=== PATIENT | female | born 1930 ===

== ENCOUNTER 2017-07-29 01:50 | Inpatient (IN) | payer MEDICARE, BC ==
[2017-07-29 04:08] LABS: Troponin I 0.018 ng/mL (0.000-0.034)
[2017-07-29 04:09] LABS: ALT 32 U/L (9-52); AST 26 U/L (14-36); Alkaline Phosphatase 59 U/L (38-126); Anion Gap 10 mmol/L; Blood Urea Nitrogen 28 mg/dL (7-17); Calcium 9.5 mg/dL (8.4-10.2); Carbon Dioxide 23 mmol/L (22-30); Chloride 104 mmol/L (98-107); Creatine Kinase MB 2.5 ng/mL (0.0-2.4); Glucose 136 mg/dL (74-99); Magnesium 1.3 mg/dL (1.6-2.3); Non-African American GFR(MDRD) 53 (>60 ml/min/1.73 sqM); Phosphorus 3.6 mg/dL (2.5-4.5); Potassium 4.1 mmol/L (3.5-5.1); Sodium 137 mmol/L (137-145); Total Bilirubin 0.3 mg/dL (0.2-1.3); Total Protein 6.6 g/dL (6.3-8.2)
[2017-07-29 04:15] LABS: INR 2.3 (<1.2); Partial Thromboplastin Time 38.5 sec (22.0-30.0); Prothrombin Time 22.5 sec (9.0-12.0)
[2017-07-29 04:56] LABS: Aty Lym Flag Slight; CHCM 32.8; HDW 2.65; HGB 13.5 gm/dL (11.4-16.0); MCH 29.5 pg (25.0-35.0); MCHC 32.1 g/dL (31.0-37.0); Mean Platelet Volume 7.8; RBC 4.56 m/uL (3.80-5.40); RDW 13.5 % (11.5-15.5); WBC 6.5 k/uL (3.8-10.6); WBC (Perox) 6.53
[2017-07-29 04:57] LABS: Add Differential Manual Differential
[2017-07-29 04:58] LABS: Band Neutrophils % 4 %; Manual Review Performed; Nucleated Red Blood Cells 0 /100 WBC (0-0); Total Cells Counted 100
[2017-07-29] MEDS ORDERED: DEXAMETHASONE SOD PHOSPHATE 10 MG/ML 1 ML VIAL ONE (05:00)
[2017-07-29] MEDS ORDERED: AZITHROMYCIN 500 MG in SODIUM CHLORIDE 0.9% 250 ML IVPB ONE (05:00)
[2017-07-29] MEDS ORDERED: SODIUM CHLORIDE 0.9% 500 ML BAG ONE (05:00)
[2017-07-29] MEDS ORDERED: ONDANSETRON 4 MG/2 ML VIAL ONE (05:00)
[2017-07-29] MEDS ORDERED: LORazepam 2 MG/ML INJ ONE (05:00)
[2017-07-29] MEDS ORDERED: RACEPINEPHRINE 2.25% NEB 0.5 ML NEBU INHALATION ONE (05:00)
--- NOTE | 2017-07-29 05:51 | XR ---
EXAM: XR Chest, 2 Views CLINICAL HISTORY: cough, MAGED TECHNIQUE: Frontal and lateral views of the chest. COMPARISON: No relevant prior studies available. FINDINGS: Lungs: Unremarkable. No consolidation. Pleural space: Unremarkable. No pneumothorax. Heart: Cardiomegaly. Mediastinum: Unremarkable. Bones/joints: Unremarkable. Upper abdomen: IVC filter. IMPRESSION: No acute findings. EXAM: XR Soft Tissue Neck CLINICAL HISTORY: cough, MAGED TECHNIQUE: Frontal and lateral views of the soft tissues of the neck. COMPARISON: No relevant prior studies available. FINDINGS: Airway: Unremarkable. No abnormal narrowing. Bones/joints: Mild Degenerative changes of the cervical spine mainly at C5-C6. Soft tissues: Unremarkable. No abnormal soft tissue prominence. Normal epiglottis. IMPRESSION: No acute findings.
[2017-07-29] MEDS ORDERED: NITROGLYCERIN SL TABS 0.4 MG TAB SUBLINGUAL PRN (07:11)
[2017-07-29] MEDS: METOPROLOL TARTRATE 50 MG TAB PO SCH ×2 (09:33→20:12)
--- NOTE | 2017-07-29 10:51 | P.HPIM ---
History of Present Illness H&P Date: 07/29/17 Chief Complaint: shortness of breath This 87-year-old female presented to the emergency room after a choking episode. Patient says she was sleeping, woke up short of breath. Denies any chest pains or palpitations. No history of cardiac disease in the past. She did gradually eat a regular urgent care on Thursday where she was having some sinus drainage. She was given Flonase and azithromycin. Review of Systems Constitutional: Denies chills, Denies fever, Denies sweats Ears, nose, mouth and throat: Denies headache, Denies sore throat Cardiovascular: Denies chest pain, Denies palpitations Respiratory: Reports cough Gastrointestinal: Denies abdominal pain, Denies diarrhea, Denies nausea, Denies vomiting Genitourinary: Denies dysuria, Denies hematuria Integumentary: Denies pruritus, Denies rash Neurological: Denies numbness, Denies weakness Psychiatric: Denies anxiety, Denies depression Endocrine: Denies fatigue, Denies weight change Past Medical History Past Medical History: Blood Disorder, Deep Vein Thrombosis (DVT), GERD/Reflux, GI Bleed, Hyperlipidemia, Hypertension, Osteoarthritis (OA), Pulmonary Embolus ( PE) Additional Past Medical History / Comment(s): Pt is from [place] and is here with her tracie visiting family. 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 Additional Past Anesthesia/Blood Transfusion Reaction / Comment(s): Cautious intubation due to problems in throat and paralyzed L vocal cord. Smoking Status: Never smoker - Past Family History Father Family Medical History: Deep Vein Thrombosis (DVT) Additional Family Medical History / Comment(s): Father of a blood clot that traveled to his heart. Brother(s) Family Medical History: Cancer, Pulmonary Embolus Additional Family Medical History / Comment(s): Brother had pulmonary embolism. Medications and Allergies Home Medications Medication Instructions Recorded Confirmed Type Allopurinol [Zyloprim] 100 mg PO DAILY@0800 07/29/17 07/29/17 History Ascorbic Acid [Vitamin C] 500 mg PO DAILY 07/29/17 07/29/17 History Calcium 600-Vit D3 800 1 tab PO MOWEFR 07/29/17 07/29/17 History Cyanocobalamin [Vitamin B-12] 500 mcg PO DAILY 07/29/17 07/29/17 History Fluticasone Nasal [place] [Flonase 1 - 2 spr EA NOSTRIL DAILY PRN 07/29/17 History Nasal [place]] LORazepam [Ativan] 0.5 mg PO DAILY PRN 07/29/17 07/29/17 History Lisinopril [Zestril] 20 mg PO DAILY@1500 07/29/17 07/29/17 History Lisinopril-Hctz 20-25 mg 1 tab PO TID@0800,1200,1730 07/29/17 07/29/17 History [Zestoretic 20-25] Magnesium Hydroxide [Milk of 2,400 mg PO DAILY PRN 07/29/17 07/29/17 History Magnesia] Neilmed Sinus Rinse 1 applic NASAL DAILY 07/29/17 07/29/17 History Propranolol HCl [Inderal Xl] 80 mg PO HS 07/29/17 07/29/17 History Warfarin [Coumadin] 2.5 mg PO DAILY@1700 07/29/17 07/29/17 History Allergies Allergy/AdvReac Type Severity Reaction Status Date / Time iodine Allergy Severe Unknown Verified 07/29/17 07:40 bacitracin Allergy Rash/Hives Verified 07/29/17 07:40 [From Neosporin ([id number])] Latex, Natural Rubber Allergy Unknown Verified 07/29/17 07:40 naproxen Allergy Unknown Verified 07/29/17 07:40 neomycin Allergy Rash/Hives Verified 07/29/17 07:40 [From Neosporin ([id number])] Penicillins Allergy Rash/Hives Verified 07/29/17 07:40 phenobarbital Allergy Rash/Hives Verified 07/29/17 07:40 polymyxin B Allergy Rash/Hives Verified 07/29/17 07:40 [From Neosporin ([id number])] Quinolones Allergy Unknown Verified 07/29/17 04:42 amlodipine [From Norvasc] AdvReac Swelling Verified 07/29/17 07:40 ankles moxifloxacin [From Avelox] AdvReac Raised BP Verified 07/29/17 07:40 nabumetone [From Relafen] AdvReac Raised BP Verified 07/29/17 07:40 pregabalin [From Lyrica] AdvReac Mental Verified 07/29/17 07:40 reaction rosuvastatin [From Crestor] AdvReac Muscle Verified 07/29/17 07:40 weakness Sulfa (Sulfonamide AdvReac Nausea Verified 07/29/17 07:40 Antibiotics) Narcotics AdvReac See comment Uncoded 07/29/17 07:40 Physical Exam Vitals: Vital Signs Temp Pulse BP Pulse Ox 07/29/17 09:43 96.4 F L 60 194/80 99 Intake and Output 07/28/17 07/29/17 07/29/17 22:59 06:59 14:59 Intake Total 20 Balance 20 Intake: Intake, IV Titration 20 Amount Azithromycin 500 mg In 20 Sodium Chloride 0.9% 250 ml @ 125 mls/hr IVPB ONCE ONE Rx#:[id number] Other: Weight 0 g Patient Weight 07/30/17 06:59 Weight 0 g - EENT Eyes: EOMI, PERRLA ENT: no pharyngeal erythema, no tonsillar exudates, no tonsillar swelling - Neck Neck: no lymphadenopathy - Respiratory Respiratory: bilateral: CTA, negative: rales, rhonchi, wheezing - Cardiovascular Rhythm: regular Heart sounds: normal: S1, S2 - Gastrointestinal General gastrointestinal: normal bowel sounds - Integumentary Integumentary: normal, no rash - Neurologic Neurologic: CNII-XII intact - Musculoskeletal no edema, pulses palpable - Psychiatric Psychiatric: A&O x's 3, appropriate affect, intact judgment & insight Results CBC & Chem 7: 07/29/17 02:26 07/29/17 02:26 Labs: Abnormal Lab Results - Last 24 Hours (Table) 07/29/17 07/29/17 07/29/17 Range/Units 02:26 02:26 02:26 PT 22.5 H (9.0-12.0) sec INR 2.3 H (<1.2) APTT 38.5 H (22.0-30.0) sec BUN 28 H (7-17) mg/dL Glucose 136 H (74-99) mg/dL Magnesium 1.3 L (1.6-2.3) mg/dL CK-MB (CK-2) 2.5 H* (0.0-2.4) ng/mL Troponin I (0.000-0.034) ng/mL 07/29/17 Range/Units 06:00 PT (9.0-12.0) sec INR (<1.2) APTT (22.0-30.0) sec BUN (7-17) mg/dL Glucose (74-99) mg/dL Magnesium (1.6-2.3) mg/dL CK-MB (CK-2) (0.0-2.4) ng/mL Troponin I 0.036 H* (0.000-0.034) ng/mL Thrombosis Risk Factor Assmnt - Choose All That Apply Any of the Below Risk Factors Present?: Yes Other Risk Factors: Yes Each Risk Factor Represents 3 Points: Age 75 years or older, Family history of DVT/PE, History of DVT/PE Other congenital or acquired thrombophilia - If yes, enter type in comment: No Thrombosis Risk Factor Assessment Total Risk Factor Score: 9 Thrombosis Risk Factor Assessment Level: High Risk Assessment and Plan (1) Elevated troponin Narrative/Plan: will order serial troponins cardiology to eval can be troponin leak secondary to choking episode Current Visit: Yes Status: Acute Code(s): R74.8 - ABNORMAL LEVELS OF OTHER SERUM ENZYMES SNOMED Code(s): 430053509 (2) Cough Narrative/Plan: No signs of pneumonia seems to be secondary to sinus drainage continue flonase Current Visit: Yes Status: Acute Code(s): R05 - COUGH SNOMED Code(s): 25991030 (3) Accelerated essential hypertension Narrative/Plan: will resume home meds which include lisinorpril/hctz Current Visit: Yes Status: Acute Code(s): I10 - ESSENTIAL (PRIMARY) HYPERTENSION SNOMED Code(s): 04840652 (4) Pulmonary embolism Narrative/Plan: on coumadin which is therapeutic hx of marli filter Current Visit: Yes Status: Acute Code(s): I26.99 - OTHER PULMONARY EMBOLISM WITHOUT ACUTE COR PULMONALE SNOMED Code(s): 87392955 (5) DVT (deep venous thrombosis) Narrative/Plan: continue coumadin which is therapeutic Current Visit: Yes Status: Acute Code(s): I82.409 - ACUTE EMBOLISM AND THOMBOS UNSP DEEP VN UNSP LOWER EXTREMITY SNOMED Code(s): 460198128 (6) Hyperlipidemia Narrative/Plan: did not tolerate statin in the past Current Visit: Yes Status: Acute Code(s): E78.5 - HYPERLIPIDEMIA, UNSPECIFIED SNOMED Code(s): 11904835
[2017-07-29] MEDS ORDERED: LORazepam 0.5 MG TAB PO PRN (10:54)
[2017-07-29] MEDS ORDERED: MAGNESIUM HYDROXIDE 2,400 MG/10 ML CUP PO PRN (10:54)
--- NOTE | 2017-07-29 11:08 | ECHOF ---
Referral Reason:elevTrop MEASUREMENTS -------- HEIGHT: 162.6 cm WEIGHT: 82.5 kg BP: RVIDd: 3.3 cm (< 3.3) IVSd: 1.2 cm (0.6 - 1.1) LVIDd: 4.1 cm (3.9 - 5.3) LVPWd: 1.2 cm (0.6 - 1.1) IVSs: 1.5 cm LVIDs: 2.9 cm LVPWs: 1.5 cm LA Diam: 4.1 cm (2.7 - 3.8) LAESV Index (A-L): 33.50 ml/m Ao Diam: 2.6 cm (2.0 - 3.7) AV Cusp: 2.1 cm (1.5 - 2.6) LA Diam: 3.6 cm (2.7 - 3.8) MV EXCURSION: 19.523 mm (> 18.000) MV EF SLOPE: 64 mm/s (70 - 150) EPSS: 0.3 cm MV E Tejas: 0.57 m/s MV DecT: 202 ms MV A Tejas: 0.96 m/s MV E/A Ratio: 0.59 RAP: 5.00 mmHg RVSP: 13.38 mmHg FINDINGS -------- Sinus rhythm. This was a technically adequate study. The left ventricular size is normal. There is mild concentric left ventricular hypertrophy. Overa ll left ventricular systolic function is normal with, an EF between 55 - 60 %. The diastolic fillin g pattern is normal for the age of the patient 12.17. The right ventricle is normal in size. LA is midly dilated 29-33ml/m2. The right atrial size is normal. There is mild aortic valve sclerosis. There is no evidence of aortic regurgitation. Mild mitral annular calcification present. Mild mitral regurgitation is present. Mild tricuspid regurgitation present. There is no evidence of pulmonary hypertension. The right v entricular systolic pressure, as measured by Doppler, is 13.38mmHg. Trace/mild (physiologic) pulmonic regurgitation. The aortic root size is normal. There is no pericardial effusion. CONCLUSIONS -------- 1. The left ventricular size is normal. 2. There is mild concentric left ventricular hypertrophy. 3. Overall left ventricular systolic function is normal with, an EF between 55 - 60 %. 4. The diastolic filling pattern is normal for the age of the patient 12.17 5. LA is midly dilated 29-33ml/m2. 6. There is mild aortic valve sclerosis. 7. Mild mitral annular calcification present. 8. Mild mitral regurgitation is present. 9. Mild tricuspid regurgitation present. 10. There is no evidence of pulmonary hypertension. 11. The right ventricular systolic pressure, as measured by Doppler, is 13.38mmHg. 12. Trace/mild (physiologic) pulmonic regurgitation. 13. The aortic root size is normal. 14. There is no pericardial effusion. [employer]: Elham Saldana RDCS
[2017-07-29] MEDS ORDERED: CALCIUM CARB-VIT D 500MG-200UN 1 EACH TAB PO SCH (12:00)
[2017-07-29] MEDS ORDERED: ALBUTEROL NEBULIZED 2.5 MG/3 ML INHALATION STA (12:18)
[2017-07-29] MEDS: LISINOPRIL-HCTZ 20-25 MG 1 EACH TAB PO SCH ×2 (12:19→20:13)
[2017-07-29 13:12] LABS: Creatine Kinase MB 2.4 ng/mL (0.0-2.4); Troponin I 0.028 ng/mL (0.000-0.034)
[2017-07-29] MEDS ORDERED: Magnesium Replacement Protocol 1 EACH MISC MISCELLANE PRN (14:28)
--- NOTE | 2017-07-29 14:40 | P.CRDCN ---
History of Present Illness Consult date: 07/29/17 Requesting physician: Gallo Velasquez Reason for Consult (text): this is a pleasant 87-year-old femalewith history of hypertension, hyperlipidemia, DVT and prior PE, GERD, factor VIII deficiency, who presents to the hospital with symptoms of sudden onset of difficulty in breathing, precipitated by a choking episode. Patient states that it woke her from sleep, she coughed a few times and then felt as though she wasn't able to breathe at all. She was brought to the emergency room for further evaluation. Patient had been started as an outpatient on antibiotics for suspected upper respiratory infection.chest x-ray did not reveal any acute findings.soft tissue neck x-ray no abnormality seen.echocardiogram with Doppler study was performed which revealed a normal left ventricular systolic function.EKG shows normal sinus rhythm with occasional PACs,no acute changes noted.CBC normal. D-dimer negative. INR 2.3, potassium 4.1, BUN 28, creatinine 1.0.troponin 0.018, 0.036 , BNP level 463.at the time of our examination, patient states she pretty much feels back to herself, still mildly short of breath. Denies having any chest discomfort. Past Medical History Past Medical History: Blood Disorder, Deep Vein Thrombosis (DVT), GERD/Reflux, GI Bleed, Hyperlipidemia, Hypertension, Osteoarthritis (OA), Pulmonary Embolus ( PE) Additional Past Medical History / Comment(s): Pt is from [place] and is here with her tracie visiting family. 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 Additional Past Anesthesia/Blood Transfusion Reaction / Comment(s): Cautious intubation due to problems in throat and paralyzed L vocal cord. Smoking Status: Never smoker - Past Family History Father Family Medical History: Deep Vein Thrombosis (DVT) Additional Family Medical History / Comment(s): Father of a blood clot that traveled to his heart. Brother(s) Family Medical History: Cancer, Pulmonary Embolus Additional Family Medical History / Comment(s): Brother had pulmonary embolism. Medications and Allergies Home Medications Medication Instructions Recorded Confirmed Type Allopurinol [Zyloprim] 100 mg PO DAILY@0800 07/29/17 07/29/17 History Ascorbic Acid [Vitamin C] 500 mg PO DAILY 07/29/17 07/29/17 History Calcium 600-Vit D3 800 1 tab PO MOWEFR 07/29/17 07/29/17 History Cyanocobalamin [Vitamin B-12] 500 mcg PO DAILY 07/29/17 07/29/17 History Fluticasone Nasal [place] [Flonase 1 - 2 spr EA NOSTRIL DAILY PRN 07/29/17 History Nasal [place]] LORazepam [Ativan] 0.5 mg PO DAILY PRN 07/29/17 07/29/17 History Lisinopril [Zestril] 20 mg PO DAILY@1500 07/29/17 07/29/17 History Lisinopril-Hctz 20-25 mg 1 tab PO TID@0800,1200,1730 07/29/17 07/29/17 History [Zestoretic 20-25] Magnesium Hydroxide [Milk of 2,400 mg PO DAILY PRN 07/29/17 07/29/17 History Magnesia] Neilmed Sinus Rinse 1 applic NASAL DAILY 07/29/17 07/29/17 History Propranolol HCl [Inderal Xl] 80 mg PO HS 07/29/17 07/29/17 History Warfarin [Coumadin] 2.5 mg PO DAILY@1700 07/29/17 07/29/17 History Allergies Allergy/AdvReac Type Severity Reaction Status Date / Time iodine Allergy Severe Unknown Verified 07/29/17 07:40 bacitracin Allergy Rash/Hives Verified 07/29/17 07:40 [From Neosporin ([id number])] Latex, Natural Rubber Allergy Unknown Verified 07/29/17 07:40 naproxen Allergy Unknown Verified 07/29/17 07:40 neomycin Allergy Rash/Hives Verified 07/29/17 07:40 [From Neosporin ([id number])] Penicillins Allergy Rash/Hives Verified 07/29/17 07:40 phenobarbital Allergy Rash/Hives Verified 07/29/17 07:40 polymyxin B Allergy Rash/Hives Verified 07/29/17 07:40 [From Neosporin ([id number])] Quinolones Allergy Unknown Verified 07/29/17 04:42 amlodipine [From Norvasc] AdvReac Swelling Verified 07/29/17 07:40 ankles moxifloxacin [From Avelox] AdvReac Raised BP Verified 07/29/17 07:40 nabumetone [From Relafen] AdvReac Raised BP Verified 07/29/17 07:40 pregabalin [From Lyrica] AdvReac Mental Verified 07/29/17 07:40 reaction rosuvastatin [From Crestor] AdvReac Muscle Verified 07/29/17 07:40 weakness Sulfa (Sulfonamide AdvReac Nausea Verified 07/29/17 07:40 Antibiotics) Narcotics AdvReac See comment Uncoded 07/29/17 07:40 Physical Exam Vitals: Vital Signs Temp Pulse Pulse BP Pulse Ox 07/29/17 12:44 62 07/29/17 12:37 60 07/29/17 12:00 75 142/87 07/29/17 10:55 169/71 07/29/17 09:43 96.4 F L 60 194/80 99 Intake and Output 07/28/17 07/29/17 07/29/17 22:59 06:59 14:59 Intake Total 260 Balance 260 Intake: Intake, IV Titration 20 Amount Azithromycin 500 mg In 20 Sodium Chloride 0.9% 250 ml @ 125 mls/hr IVPB ONCE ONE Rx#:[id number] Oral 240 Other: Voiding Method Toilet Weight 81 kg Patient Weight 07/30/17 06:59 Weight 81 kg PHYSICAL EXAMINATION: HEENT: [Head is atraumatic, normocephalic. Pupils equal, round. Neck is supple. There is no elevated jugular venous pressure.] HEART EXAMINATION: [Heart S1, S2 normal. No murmur or gallop heard.] CHEST EXAMINATION:[ Lungs are clear to auscultation and precussion. No chest wall tenderness is noted on palpation or with deep breathing.] ABDOMEN: [ Soft, nontender. Bowel sounds are heard. No organomegaly noted]. EXTREMITIES:[ 2+ peripheral pulses with no evidence of peripheral edema and no calf tenderness noted]. NEUROLOGIC [patient is awake, alert and oriented -3.] . Results 07/29/17 02:26 07/29/17 02:26 Cardiac Enzymes 07/29/17 07/29/17 07/29/17 Range/Units 02:26 02:26 06:00 AST 26 (14-36) U/L CK-MB (CK-2) 2.5 H* (0.0-2.4) ng/mL Troponin I 0.018 0.036 H* (0.000-0.034) ng/mL 07/29/17 Range/Units 12:25 AST (14-36) U/L CK-MB (CK-2) 2.4 (0.0-2.4) ng/mL Troponin I 0.028 (0.000-0.034) ng/mL Coagulation 07/29/17 Range/Units 02:26 PT 22.5 H (9.0-12.0) sec APTT 38.5 H (22.0-30.0) sec CBC 07/29/17 Range/Units 02:26 WBC 6.5 (3.8-10.6) k/uL RBC 4.56 (3.80-5.40) m/uL Hgb 13.5 (11.4-16.0) gm/dL Hct 42.0 (34.0-46.0) % Plt Count 275 (150-450) k/uL Comprehensive Metabolic Panel 07/29/17 Range/Units 02:26 Sodium 137 (137-145) mmol/L Potassium 4.1 (3.5-5.1) mmol/L Chloride 104 (98-107) mmol/L Carbon Dioxide 23 (22-30) mmol/L BUN 28 H (7-17) mg/dL Creatinine 1.00 (0.52-1.04) mg/dL Glucose 136 H (74-99) mg/dL Calcium 9.5 (8.4-10.2) mg/dL AST 26 (14-36) U/L ALT 32 (9-52) U/L Alkaline Phosphatase 59 (38-126) U/L Total Protein 6.6 (6.3-8.2) g/dL Albumin 3.8 (3.5-5.0) g/dL Current Medications Generic Name Dose Route Start Last Admin Trade Name Freq PRN Reason Stop Dose Admin Allopurinol 100 mg 07/29/17 14:00 Zyloprim PO DAILY@0800 REPLACED BY [facility] Ascorbic Acid 500 mg 07/30/17 09:00 Vitamin C PO DAILY REPLACED BY [facility] Aspirin 325 mg 07/30/17 09:00 Aspirin PO DAILY REPLACED BY [facility] Calcium Carbonate 1 each 07/29/17 12:00 07/29/17 12:19 Oscal 500+D PO 1 each MoWeFr@1200 REPLACED BY [facility] Administration Cyanocobalamin 500 mcg 07/30/17 12:00 Vitamin B-12 PO DAILY@1200 REPLACED BY [facility] Fluticasone Propionate 2 spray 07/30/17 09:00 Flonase Nasal Sanger EA NOSTRIL DAILY REPLACED BY [facility] Lisinopril/HCTZ 1 each 07/29/17 12:00 07/29/17 12:19 Zestoretic 20-25 PO 1 each TID@0800,1200,1730 REPLACED BY [facility] Administration Magnesium Sulfate/Dextrose 1 100 mls @ 100 mls/hr 07/29/17 15:00 gm/ IV Solution IVPB 07/29/17 17:59 Q1H REPLACED BY [facility] Lisinopril 20 mg 07/29/17 15:00 Zestril PO DAILY@1500 REPLACED BY [facility] Lorazepam 0.5 mg 07/29/17 10:54 Ativan PO DAILY PRN Anxiety Magnesium Hydroxide 2,400 mg 07/29/17 10:54 Milk Of Magnesia PO DAILY PRN Constipation Metoprolol Tartrate 50 mg 07/29/17 09:00 07/29/17 09:33 Lopressor PO 50 mg BID GARIMA Administration Miscellaneous Information 1 each 07/29/17 14:28 Magnesium Per Protocol MISCELLANE DAILY PRN Per Protocol Protocol Nitroglycerin 0.4 mg 07/29/17 07:11 Nitrostat SUBLINGUAL Q5M PRN Chest Pain Propranolol HCl 80 mg 07/29/17 21:00 Inderal La PO HS GARIMA Sodium Chloride 1 spray 07/30/17 09:00 Deep Sea NASAL DAILY PRN NASAL CONGESTION Warfarin Sodium 2.5 mg 07/29/17 17:00 Coumadin PO DAILY@1700 GARIMA Intake and Output 07/28/17 07/29/17 07/29/17 22:59 06:59 14:59 Intake Total 260 Balance 260 Intake: Intake, IV Titration 20 Amount Azithromycin 500 mg In 20 Sodium Chloride 0.9% 250 ml @ 125 mls/hr IVPB ONCE ONE Rx#:[id number] Oral 240 Other: Voiding Method Toilet Weight 81 kg Patient Weight 07/30/17 06:59 Weight 81 kg 07/29/17 02:26 07/29/17 02:26 EKG Interpretations (text) AG shows normal sinus rhythm with no acute changes. Assessment and Plan Plan: assessment and plan #1 symptoms of shortness of breath with associated coughing and choking sensation.rest x-ray did not reveal any acute findings.BNP 463. #2 accelerated hypertension, patient states after she gets these coughing episodes that quite often her blood pressure is elevated, blood pressure today 142/80. #3 abnormal troponins, not consistent with acute coronary syndrome. Patient denies having any chest discomfort. EKG does not show any changes suggestive of ischemia. #4 hyperlipidemia #5 history of DVT and PE #6 hypothyroidism #7factor VIII deficiency Plan Echocardiogram with Doppler study revealed normal left ventricular systolic function. We will obtain one further troponin, if it is negative, from cardiology's perspective the patient may be able to be discharged home. She can follow-up with her physician in [place]. Thank you for letting us participate in her care. DNP note has been reviewed, I agree with a documented findings and plan of care. Patient was seen and examined.
[2017-07-29] MEDS: MAGNESIUM SULFATE-D5W PMX 1 GM in DEXTROSE/WATER 1 100ML.BAG IVPB SCH ×3 (14:51→17:17)
[2017-07-29] MEDS: ALLOPURINOL 100 MG TAB PO SCH (14:52)
[2017-07-29] MEDS ORDERED: LISINOPRIL 20 MG TAB PO SCH (15:00)
[2017-07-29] MEDS ORDERED: WARFARIN 2.5 MG TAB PO SCH (17:00)
[2017-07-29] MEDS ORDERED: PROPRANOLOL LA 80 MG CAP.SA.24H PO SCH (21:00)
[2017-07-30 04:26] VITALS: RESP 16
[2017-07-30 06:22] LABS: Anion Gap 10 mmol/L; Blood Urea Nitrogen 33 mg/dL (7-17); Calcium 9.4 mg/dL (8.4-10.2); Carbon Dioxide 24 mmol/L (22-30); Chloride 104 mmol/L (98-107); Cholesterol 176 mg/dL (<200); Glucose 200 mg/dL (74-99); HDL Cholesterol 33 mg/dL (40-60); Magnesium 2.1 mg/dL (1.6-2.3); Non-African American GFR(MDRD) 53 (>60 ml/min/1.73 sqM); Potassium 4.4 mmol/L (3.5-5.1); Sodium 138 mmol/L (137-145)
[2017-07-30] MEDS ORDERED: ALLOPURINOL 100 MG TAB PO SCH (08:00)
[2017-07-30] MEDS: LISINOPRIL-HCTZ 20-25 MG 1 EACH TAB PO SCH ×2 (08:33→11:51)
[2017-07-30] MEDS: ALLOPURINOL 100 MG TAB PO SCH (08:34)
[2017-07-30] MEDS: METOPROLOL TARTRATE 50 MG TAB PO SCH (08:35)
[2017-07-30 08:38] VITALS: TEMP 96.3
[2017-07-30] MEDS ORDERED: SODIUM CHLORIDE 0.65% NASAL SPRAY 44 ML BTL NASAL PRN (09:00)
[2017-07-30] MEDS ORDERED: FLUTICASONE 50MCG/SPRAY NASAL 16GM EA NOSTRIL SCH (09:00)
[2017-07-30] MEDS ORDERED: ASPIRIN 325 MG TAB PO SCH (09:00)
[2017-07-30] MEDS ORDERED: ASCORBIC ACID 500 MG TAB PO SCH (09:00)
--- NOTE | 2017-07-30 11:34 | P.PN ---
Subjective Progress Note Date: 07/30/17 This is a pleasant 87 stroke female with history of hypertension, hyperlipidemia, DVT, prior PE, GERD, factor VIII deficiency who presents to the hospital with symptoms of sudden onset of difficulty breathing, precipitated by a choking episode. Apparently the patient had been started on antibiotics as an outpatient for suspected upper respiratory infection. Chest x-ray on admission did not reveal any acute findings. Echocardiogram with Doppler was performed which revealed a normal LV systolic function. EKG showed normal sinus rhythm with occasional PACs, no acute changes. She was find have a mildly elevated troponin 0.036 with subsequent troponins being normal. Upon examination, patient is resting comfortably in bed. She pretty much feels back to her normal self with some continued mild shortness of breath. She denies having any chest discomfort. Objective - Vital Signs Vital signs: Vital Signs Temp 96.3 F L 07/30/17 08:00 Pulse 61 07/30/17 08:00 Resp 16 07/30/17 04:00 BP 123/56 07/30/17 08:00 Pulse Ox 96 07/30/17 08:00 Intake & Output 07/29/17 07/30/17 07/30/17 18:59 06:59 18:59 Intake Total 700 20 240 Output Total 250 Balance 700 -230 240 Weight 81 kg 81.8 kg Intake: IV 20 0.9% NS FLUSH 20 Intake, IV Titration 220 Amount Azithromycin 500 mg In 20 Sodium Chloride 0.9% 250 ml @ 125 mls/hr IVPB ONCE ONE Rx#:[id number] Magnesium Sulfate-D5w Pmx 200 1 gm In Dextrose/Water 1 100ml.bag @ 100 mls/hr IVPB Q1H [facility] Rx#: [id number] Oral 480 240 Output: Urine 250 Other: Voiding Method Toilet Toilet # Voids 2 1 - Exam PHYSICAL EXAMINATION: HEENT: Head is atraumatic, normocephalic. Pupils equal, round. Neck is supple. There is no elevated jugular venous pressure. HEART EXAMINATION: Heart sounds regular, S1 and S2 normal. No murmur or gallop heard. CHEST EXAMINATION: Lungs are clear to auscultation and precussion. No chest wall tenderness is noted on palpation or with deep breathing. ABDOMEN: Soft, nontender. Bowel sounds are heard. No organomegaly noted. EXTREMITIES: 2+ peripheral pulses with no evidence of peripheral edema and no calf tenderness noted. NEUROLOGIC patient is awake, alert and oriented x3. . - Labs CBC & Chem 7: 07/29/17 02:26 07/30/17 05:28 Labs: Abnormal Lab Results - Last 24 Hours (Table) 07/30/17 Range/Units 05:28 BUN 33 H (7-17) mg/dL Glucose 200 H (74-99) mg/dL LDL Cholesterol, Calc 116 H (0-99) mg/dL HDL Cholesterol 33 L (40-60) mg/dL Assessment and Plan Assessment: #1 symptoms of shortness of breath with associated coughing and choking sensation, chest x-ray did not reveal any acute findings and a BNP was normal at 463. #2 accelerated hypertension, patient states after she gets coughing episodes that her blood pressure quite often elevates, better controlled this morning at 123/56. 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 She will resume her home Inderal dose of 80 mg by mouth daily at bedtime. HISTOLOGY ASSISTANT note has been reviewed, I agree with a documented findings and plan of care. Patient was seen and examined.
[2017-07-30] MEDS ORDERED: CYANOCOBALAMIN 500 MCG TAB PO SCH (12:00)
[2017-07-30 12:19] VITALS: BP 172/73; PULSE 55
--- NOTE | 2017-07-30 12:45 | P.PN ---
Subjective Progress Note Date: 07/30/17 Principal diagnosis: cough/dyspnea Patient had, spell on slit that woke her up from sleep. Objective - Vital Signs Vital signs: Vital Signs Temp 96.3 F L 07/30/17 08:00 Pulse 61 07/30/17 08:00 Resp 16 07/30/17 04:00 BP 123/56 07/30/17 08:00 Pulse Ox 96 07/30/17 08:00 Intake & Output 07/29/17 07/30/17 07/30/17 18:59 06:59 18:59 Intake Total 700 20 240 Output Total 250 Balance 700 -230 240 Weight 81 kg 81.8 kg Intake: IV 20 0.9% NS FLUSH 20 Intake, IV Titration 220 Amount Azithromycin 500 mg In 20 Sodium Chloride 0.9% 250 ml @ 125 mls/hr IVPB ONCE ONE Rx#:[id number] Magnesium Sulfate-D5w Pmx 200 1 gm In Dextrose/Water 1 100ml.bag @ 100 mls/hr IVPB Q1H [facility] Rx#: [id number] Oral 480 240 Output: Urine 250 Other: Voiding Method Toilet Toilet # Voids 2 1 - Exam gen:alert and oriented lungs:clear to auscultation heart:s1s2 abdomen:soft and depressible,non tender ext:no edema - Labs CBC & Chem 7: 07/29/17 02:26 07/30/17 05:28 Labs: Abnormal Lab Results - Last 24 Hours (Table) 07/30/17 Range/Units 05:28 BUN 33 H (7-17) mg/dL Glucose 200 H (74-99) mg/dL LDL Cholesterol, Calc 116 H (0-99) mg/dL HDL Cholesterol 33 L (40-60) mg/dL Assessment and Plan (1) Elevated troponin Narrative/Plan: Noncardiac Current Visit: Yes Status: Acute Code(s): R74.8 - ABNORMAL LEVELS OF OTHER SERUM ENZYMES SNOMED Code(s): 219422722 (2) Cough Narrative/Plan: Suspect secondary to patient's history of vocal cord paralysis. Mostly happens at night will order claritin to assist with drainage. Current Visit: Yes Status: Acute Code(s): R05 - COUGH SNOMED Code(s): 41980775 (3) Accelerated essential hypertension Narrative/Plan: Better controlled today Continue lisinopril hydrochlorothiazide and lisinopril and Inderal Current Visit: Yes Status: Acute Code(s): I10 - ESSENTIAL (PRIMARY) HYPERTENSION SNOMED Code(s): 41565920 (4) Pulmonary embolism Narrative/Plan: on coumadin which is therapeutic hx of marli filter Current Visit: Yes Status: Acute Code(s): I26.99 - OTHER PULMONARY EMBOLISM WITHOUT ACUTE COR PULMONALE SNOMED Code(s): 47251298 (5) DVT (deep venous thrombosis) Narrative/Plan: continue coumadin which is therapeutic Status: Acute Code(s): I82.409 - ACUTE EMBOLISM AND THOMBOS UNSP DEEP VN UNSP LOWER EXTREMITY SNOMED Code(s): 144559796 (6) Hyperlipidemia Narrative/Plan: did not tolerate statin in the past Current Visit: Yes Status: Acute Code(s): E78.5 - HYPERLIPIDEMIA, UNSPECIFIED SNOMED Code(s): 22499812 Plan: We'll discharge home Follow up with her primary care physician on Thursday
--- NOTE | 2017-07-30 12:55 | P.DS ---
Providers Date of admission: 07/29/17 07:11 Expected date of discharge: 07/30/17 Attending physician: Gary Tavarez MD Consults: 07/29/17 07:11 Consult Physician Urgent Consulting Provider: Orlin Ghotra Consult Reason/Comments: elevTrop Do you want consulting provider notified?: Yes Primary care physician: Physician Nonstaff - Discharge Diagnosis(es) (1) Elevated troponin Current Visit: Yes Status: Acute (2) Cough Current Visit: Yes Status: Acute (3) Accelerated essential hypertension Current Visit: Yes Status: Acute (4) Pulmonary embolism Current Visit: Yes Status: Acute (5) DVT (deep venous thrombosis) Status: Acute (6) Hyperlipidemia Current Visit: Yes Status: Acute Hospital Course: 87-year-old female that presented with an episode of coughing and cocaine or clear up at night. Patient has known history of paralysis permanency. Surgery day she had in the past. Patient was seen today she's been having some upper respiratory symptoms with some increased postnasal drip. And that seems to have increased episodes COUGHING. UPON EVALUATION IN THE ER PATIENT WAS NOTICED TO HAVE SOME MINIMAL INCREASE IN HER COMPONENT THAT HAS TRENDED DOWN PATIENT WAS EVALUATED BY CARDIOLOGY AND DEEMED NONCARDIAC. POINT PATIENT WILL BE DISCHARGED HOME. PRIMARY CARE PHYSICIAN ON THURSDAY. SHE WILL BE PRESCRIBED SOME CLARITIN TO HELP WITH HER SYMPTOMS. time spent with discharge was 32min Patient Condition at Discharge: Stable Plan - Discharge Summary Discharge Rx Participant: No New Discharge Prescriptions: New Loratadine [Claritin] 10 mg PO DAILY #10 tab Continue Allopurinol [Zyloprim] 100 mg PO DAILY@0800 Ascorbic Acid [Vitamin C] 500 mg PO DAILY Calcium 600-Vit D3 800 1 tab PO MOWEFR Cyanocobalamin [Vitamin B-12] 500 mcg PO DAILY Lisinopril [Zestril] 20 mg PO DAILY@1500 Lisinopril-Hctz 20-25 mg [Zestoretic 20-25] 1 tab PO DAILY LORazepam [Ativan] 0.5 mg PO DAILY PRN PRN Reason: Anxiety Magnesium Hydroxide [Milk of Magnesia] 2,400 mg PO DAILY PRN PRN Reason: Constipation Neilmed Sinus Rinse 1 applic NASAL DAILY Propranolol HCl [Inderal Xl] 80 mg PO HS Warfarin [Coumadin] 2.5 mg PO DAILY@1700 Fluticasone Nasal [place] [Flonase Nasal [place]] 1 - 2 spr EA NOSTRIL DAILY PRN PRN Reason: Allergy Symptoms Discharge Medication List Allopurinol [Zyloprim] 100 mg PO DAILY@0800 07/29/17 [History] Ascorbic Acid [Vitamin C] 500 mg PO DAILY 07/29/17 [History] Calcium 600-Vit D3 800 1 tab PO MOWEFR 07/29/17 [History] Cyanocobalamin [Vitamin B-12] 500 mcg PO DAILY 07/29/17 [History] Fluticasone Nasal [place] [Flonase Nasal [place]] 1 - 2 spr EA NOSTRIL DAILY PRN [History] LORazepam [Ativan] 0.5 mg PO DAILY PRN 07/29/17 [History] Lisinopril [Zestril] 20 mg PO DAILY@1500 07/29/17 [History] Lisinopril-Hctz 20-25 mg [Zestoretic 20-25] 1 tab PO DAILY 07/29/17 [History] Magnesium Hydroxide [Milk of Magnesia] 2,400 mg PO DAILY PRN 07/29/17 [History] Neilmed Sinus Rinse 1 applic NASAL DAILY 07/29/17 [History] Propranolol HCl [Inderal Xl] 80 mg PO HS 07/29/17 [History] Warfarin [Coumadin] 2.5 mg PO DAILY@1700 07/29/17 [History] Loratadine [Claritin] 10 mg PO DAILY #10 tab 07/30/17 [Rx] Follow up Appointment(s)/Referral(s): Nonstaff,Physician [Primary Care Provider] - 1 Week
== END 2017-07-30 15:00 | disposition home or self-care (01) | DRG 204 ==
LOC: EC 01:50 → 6SEL 07:11
PROVIDERS: ADMIT Family Medicine; ATTEND Family Medicine
DX: R05 Cough (principal); D66 Hereditary factor VIII deficiency; J38.01 Paralysis of vocal cords and larynx, unilateral; G62.9 Polyneuropathy, unspecified; I10 Essential (primary) hypertension; E03.9 Hypothyroidism, unspecified; E78.5 Hyperlipidemia, unspecified; K21.9 Gastro-esophageal reflux disease without esophagitis; R74.8 Abnormal levels of other serum enzymes; M10.9 Gout, unspecified; Z96.651 Presence of right artificial knee joint; Z96.1 Presence of intraocular lens; M19.90 Unspecified osteoarthritis, unspecified site; Z87.19 Personal history of other diseases of the digestive system; Z98.41 Cataract extraction status, right eye; Z88.1 Allergy status to other antibiotic agents; Z79.01 Long term (current) use of anticoagulants; Z79.899 Other long term (current) drug therapy; Z88.0 Allergy status to penicillin; Z88.2 Allergy status to sulfonamides; Z91.048 Other nonmedicinal substance allergy status; Z86.718 Personal history of other venous thrombosis and embolism; Z86.711 Personal history of pulmonary embolism; Z98.42 Cataract extraction status, left eye
CPT/HCPCS: 36415; 70360; 71020; 80048; 80053; 80061; 82550; 82553; 83735; 83880; 84100; 84484; 85025; 85379; 85610; 85730; 93005; 93306; 94640; 99285